=== PATIENT | male | born 1935 | race Caucasian/White ===

== ENCOUNTER 2019-09-24 09:54 | Inpatient (IN) ==
[2019-09-24] MEDS ORDERED: FUROSEMIDE 40 MG/4 ML VIAL IV STA (10:18)
[2019-09-24 10:50] LABS: Basophils % 0.2 % (0.0-0.8); Eosinophils % 0.1 % (0.00-10.9); Hematocrit 31.5 VOL% (42.0-52.0); Hemoglobin 10.4 GM/DL (14.0-18.0); Immature Granulocytes % 12.5 %; Immature Granulocytes Absolute 2.43 #; Lymphocytes # 0.8 10*3/uL (1.4-4.0); Lymphocytes % 4.2 % (21.2-54.2); Mean Corpuscular Volume 94.6 FL (87-102); Mean Platelet Volume 11.3 FL (9.6-12.0); Monocytes % 5.5 % (1.7-12.7); Neutrophils % 77.5 % (38.7-73.9); Platelet Count 195 T/CUMM (130-400); Red Blood Count 3.33 MC/CUMM (3.8-5.5); Red Cell Distribution Width 18.8 % (9.3-17.3); White Blood Count 19.4 T/CUMM (4-12)
[2019-09-24 11:12] LABS: Albumin 2.1 G/DL (3.4-5.0); Bilirubin,Total 0.9 MG/DL (0.2-1.0); Osmolality,Calculated 301.3 MOS/KG (273-304); Total Protein 5.5 G/DL (6.4-8.3)
[2019-09-24 11:13] LABS: Anisocytosis 1+; Band Neutrophils 3 % (0-10); Hypochromasia 1+; Lymphocytes 3 % (20-55); Metamyelocytes 1 %; Microcytosis 1+; Segmented Neutrophils 84 % (50-85); Total Cells Counted 100
[2019-09-24 11:14] LABS: Platelet Estimate Adequate
[2019-09-24 11:33] LABS: Apearance,Urine CLOUDY (Clear); Bacteria,Urine Occasional /HPF (Few); Bilirubin,Urine Negative (Negative); Blood, Urine Large mg/dL (Negative); Glucose,Urine (UA) Negative (Negative); Hyaline Casts,Urine 27 /LPF (0-3); Ketones,Urine Negative (Negative); Mucus,Urine Occasional /LPF (Occasional); Nitrite,Urine Negative (Negative); Protein,Urine 100 MG/DL; RBC,Urine 6445 /HPF (0-4); Urine Color Red (Yellow); Urine Specific Gravity 1.012 (1.001-1.035); Urine Urobilinogen < 2.0 EU/DL (0.2-1.0); WBC,Urine 3 /HPF (0-6)
[2019-09-24] MEDS ORDERED: ONDANSETRON 4 MG/2 ML VIAL IV PRN (13:50)
[2019-09-24] MEDS ORDERED: ACETAMINOPHEN 325 MG TABLET PO PRN (13:50)
[2019-09-24] MEDS ORDERED: ALBUMIN 5% 25 GM in PREMIX 1 EACH IV ONE (13:54)
[2019-09-24] MEDS ORDERED: DIPHENOXYLATE/ATROPINE 2.5-0.025 MG TABLET PO PRN (13:55)
[2019-09-24] MEDS ORDERED: SODIUM CHLORIDE 0.45% 1,000 ML IV SCH (14:00)
[2019-09-24] MEDS: ENOXAPARIN 30 MG/0.3 ML SYRINGE SUBCUT SCH (16:18)
[2019-09-24] MEDS: ALBUMIN 25% 25 GM in PREMIX 1 EACH IV SCH (17:50)
[2019-09-24] MEDS: cefTRIAXone 500 MG in SYRINGE 1 EACH IV SCH (20:34)
[2019-09-24] MEDS ORDERED: FUROSEMIDE 40 MG TABLET PO ONE (20:50)
[2019-09-24] MEDS ORDERED: MULTIVITAMIN (CENTRUM) TABLET PO SCH (21:00)
[2019-09-24] MEDS ORDERED: MULTIVITAMIN (OCUVITE) TABLET PO SCH (21:00)
[2019-09-24] MEDS ORDERED: LORATADINE 10 MG TABLET PO SCH (21:00)
[2019-09-24] MEDS: traMADol 50 MG TABLET PO SCH (21:10)
[2019-09-24] MEDS: PREGABALIN 50 MG CAPSULE PO SCH (21:10)
[2019-09-24] MEDS: METOPROLOL TARTRATE 25 MG TABLET PO SCH (21:10)
[2019-09-24] MEDS: methylPREDNISolone SOD SUC 40 MG/1 ML VIAL IV SCH (21:11)
[2019-09-24] MEDS: DOCUSATE SODIUM 100 MG CAPSULE PO SCH (21:11)
[2019-09-25] MEDS: ALBUMIN 25% 25 GM in PREMIX 1 EACH IV SCH ×3 (00:58→15:06)
[2019-09-25] MEDS: ALBUTEROL/IPRATROPIUM 3 ML NEB RESP TX SCH ×4 (01:38→19:55)
[2019-09-25] MEDS: MORPHINE 4 MG/1 ML VIAL IV PRN (02:29)
[2019-09-25 06:16] LABS: Basophils % 0.1 % (0.0-0.8); Eosinophils # 0.1 10*3/uL (0.0-0.87); Eosinophils % 0.6 % (0.00-10.9); Hematocrit 27.2 VOL% (42.0-52.0); Hemoglobin 8.7 GM/DL (14.0-18.0); Immature Granulocytes % 0.5 %; Immature Granulocytes Absolute 0.05 #; Lymphocytes # 0.6 10*3/uL (1.4-4.0); Lymphocytes % 6.9 % (21.2-54.2); Mean Corpuscular Volume 98.2 FL (87-102); Mean Platelet Volume 11.6 FL (9.6-12.0); Monocytes % 7.6 % (1.7-12.7); Neutrophils % 84.3 % (38.7-73.9); Platelet Count 162 T/CUMM (130-400); Red Blood Count 2.77 MC/CUMM (3.8-5.5); Red Cell Distribution Width 18.8 % (9.3-17.3); White Blood Count 9.3 T/CUMM (4-12)
[2019-09-25 06:35] LABS: Calcium 8.2 MG/DL (8.5-10.1); Osmolality,Calculated 301.3 MOS/KG (273-304)
[2019-09-25 06:40] LABS: Albumin 2.3 G/DL (3.4-5.0); Bilirubin,Direct 0.49 MG/DL (0.0-0.20); Bilirubin,Indirect 0.2 MG/DL (0.0-1.0); Bilirubin,Total 0.7 MG/DL (0.2-1.0); Total Protein 5.7 G/DL (6.4-8.3)
[2019-09-25 07:24] LABS: Band Neutrophils 10 % (0-10); Lymphocytes 10 % (20-55); Metamyelocytes 5 %; Myelocytes 2 %; Segmented Neutrophils 67 % (50-85); Total Cells Counted 100
[2019-09-25 07:25] LABS: Anisocytosis 1+; Hypochromasia 2+; Macrocytosis 1+; Platelet Estimate Normal; Target Cells 1+
[2019-09-25] MEDS ORDERED: glipiZIDE 5 MG TABLET PO SCH (09:00)
[2019-09-25] MEDS ORDERED: FUROSEMIDE 40 MG TABLET PO SCH (09:00)
[2019-09-25] MEDS ORDERED: NF- (Mirabegron [Myrbetriq] 50 MG) PO SCH (09:00)
[2019-09-25] MEDS ORDERED: POLYCARBOPHIL 625 MG TABLET PO SCH (09:00)
[2019-09-25] MEDS ORDERED: predniSONE 5 MG TABLET PO SCH (09:00)
[2019-09-25] MEDS: PREGABALIN 50 MG CAPSULE PO SCH ×2 (09:47→21:11)
[2019-09-25] MEDS: METOPROLOL TARTRATE 25 MG TABLET PO SCH ×2 (09:47→21:11)
[2019-09-25] MEDS: FUROSEMIDE 40 MG TABLET PO SCH ×2 (09:47→15:05)
[2019-09-25] MEDS: PANTOPRAZOLE 40 MG TABLET PO SCH (09:47)
[2019-09-25] MEDS: DOCUSATE SODIUM 100 MG CAPSULE PO SCH ×2 (09:47→21:11)
[2019-09-25] MEDS: traMADol 50 MG TABLET PO SCH ×3 (09:48→21:11)
[2019-09-25] MEDS: methylPREDNISolone SOD SUC 40 MG/1 ML VIAL IV SCH ×2 (09:48→21:12)
[2019-09-25] MEDS: ENOXAPARIN 30 MG/0.3 ML SYRINGE SUBCUT SCH (15:04)
[2019-09-25] MEDS: MELATONIN 3 MG TABLET PO SCH (21:10)
[2019-09-25] MEDS: cefTRIAXone 500 MG in SYRINGE 1 EACH IV SCH (21:15)
[2019-09-26] MEDS: ALBUMIN 25% 25 GM in PREMIX 1 EACH IV SCH ×2 (00:09→09:16)
[2019-09-26] MEDS: ALBUTEROL/IPRATROPIUM 3 ML NEB RESP TX SCH ×4 (01:27→19:13)
[2019-09-26 08:29] LABS: Basophils # 0.1 10*3/uL (0.0-0.2); Basophils % 0.7 % (0.0-0.8); Eosinophils % 0.4 % (0.00-10.9); Hematocrit 27.1 VOL% (42.0-52.0); Hemoglobin 8.7 GM/DL (14.0-18.0); Immature Granulocytes % 0.6 %; Immature Granulocytes Absolute 0.06 #; Lymphocytes # 1.3 10*3/uL (1.4-4.0); Lymphocytes % 12.2 % (21.2-54.2); Mean Corpuscular HGB Conc 32.1 GM/DL (32-36); Mean Corpuscular Volume 96.1 FL (87-102); Mean Platelet Volume 11.6 FL (9.6-12.0); Monocytes % 11.9 % (1.7-12.7); Neutrophils % 74.2 % (38.7-73.9); Platelet Count 193 T/CUMM (130-400); Red Blood Count 2.82 MC/CUMM (3.8-5.5); Red Cell Distribution Width 18.5 % (9.3-17.3); White Blood Count 10.4 T/CUMM (4-12)
[2019-09-26 09:05] LABS: Albumin 2.8 G/DL (3.4-5.0); Bilirubin,Total 0.6 MG/DL (0.2-1.0); Calcium 8.5 MG/DL (8.5-10.1); Total Protein 6.3 G/DL (6.4-8.3)
[2019-09-26 09:15] LABS: Hypochromasia 1+; Lymphocytes 11 % (20-55); Metamyelocytes 1 %; Myelocytes 2 %; Segmented Neutrophils 81 % (50-85); Target Cells Slight; Total Cells Counted 100
[2019-09-26 09:16] LABS: Anisocytosis 1+; Macrocytosis 1+; Platelet Estimate Adequate
[2019-09-26] MEDS: PANTOPRAZOLE 40 MG TABLET PO SCH (09:35)
[2019-09-26] MEDS: PREGABALIN 50 MG CAPSULE PO SCH ×2 (09:35→20:43)
[2019-09-26] MEDS: METOPROLOL TARTRATE 25 MG TABLET PO SCH ×2 (09:35→20:42)
[2019-09-26] MEDS: FUROSEMIDE 40 MG TABLET PO SCH ×2 (09:35→16:23)
[2019-09-26] MEDS: DOCUSATE SODIUM 100 MG CAPSULE PO SCH ×2 (09:35→20:43)
[2019-09-26] MEDS: methylPREDNISolone SOD SUC 40 MG/1 ML VIAL IV SCH ×2 (09:36→20:43)
[2019-09-26] MEDS: traMADol 50 MG TABLET PO SCH ×3 (09:36→20:42)
[2019-09-26] MEDS: SODIUM POLYSTYRENE SULFATE 15 GM/60 ML BOTTLE PO SCH ×2 (13:43→20:43)
[2019-09-26] MEDS: ENOXAPARIN 30 MG/0.3 ML SYRINGE SUBCUT SCH (13:43)
[2019-09-26] MEDS: MORPHINE 4 MG/1 ML VIAL IV PRN ×2 (19:03→20:25)
[2019-09-26] MEDS: cefTRIAXone 500 MG in SYRINGE 1 EACH IV SCH (20:42)
[2019-09-26] MEDS: MELATONIN 3 MG TABLET PO SCH (20:43)
[2019-09-27] MEDS: ALBUTEROL/IPRATROPIUM 3 ML NEB RESP TX SCH ×4 (01:15→20:18)
[2019-09-27] MEDS: SODIUM POLYSTYRENE SULFATE 15 GM/60 ML BOTTLE PO SCH (04:58)
[2019-09-27] MEDS ORDERED: MORPHINE 4 MG/1 ML VIAL IV PRN (09:05)
[2019-09-27] MEDS ORDERED: SODIUM POLYSTYRENE SULFATE 15 GM/60 ML BOTTLE PO STA (09:52)
[2019-09-27] MEDS: PANTOPRAZOLE 40 MG TABLET PO SCH (09:54)
[2019-09-27] MEDS: PREGABALIN 50 MG CAPSULE PO SCH ×2 (09:54→21:42)
[2019-09-27] MEDS: traMADol 50 MG TABLET PO SCH ×3 (09:54→21:43)
[2019-09-27] MEDS: FUROSEMIDE 40 MG TABLET PO SCH ×2 (09:54→18:12)
[2019-09-27] MEDS: DOCUSATE SODIUM 100 MG CAPSULE PO SCH ×2 (09:54→21:42)
[2019-09-27] MEDS: METOPROLOL TARTRATE 25 MG TABLET PO SCH ×2 (09:54→21:42)
[2019-09-27] MEDS: methylPREDNISolone SOD SUC 40 MG/1 ML VIAL IV SCH ×2 (09:57→20:42)
[2019-09-27] MEDS: ENOXAPARIN 30 MG/0.3 ML SYRINGE SUBCUT SCH (14:37)
[2019-09-27] MEDS ORDERED: SCOPOLAMINE 1.5 MG PATCH TRANSDERM SCH (19:00)
[2019-09-27] MEDS: cefTRIAXone 500 MG in SYRINGE 1 EACH IV SCH (20:44)
[2019-09-27] MEDS: MELATONIN 3 MG TABLET PO SCH (21:43)
[2019-09-27 21:59] VITALS: BP 111/57
[2019-09-28] MEDS: ALBUTEROL/IPRATROPIUM 3 ML NEB RESP TX SCH (00:06)
== END 2019-09-28 01:15 | disposition expired | DRG 840 ==
LOC: N.ED 09:54 → N.EDINP 13:50 → N.4E 14:57
PROVIDERS: ADMIT Family Medicine; ATTEND Family Medicine